=== PATIENT | female | born 1940 | race Caucasian/White ===

== ENCOUNTER 2018-10-24 21:32 | Inpatient (IN) | payer MEDICARE ==
[~2018-10-24] VITALS: Ht 160 cm; Wt 48.5 kg
[2018-10-24] MEDS: BICALUTAMIDE 50 MG TAB PO SCH (21:00)
[2018-10-25 00:15] VITALS: BP 137/63
[2018-10-25 00:57] LABS: HEMATOCRIT 43.3 % (36.0-47.0); HEMOGLOBIN 13.9 g/dl (12.0-15.5); MEAN CORPUSCULAR HEMOGLOBIN 32.9 pg (27.0-33.0); MEAN CORPUSCULAR HGB CONC 32.1 g/dl (32.0-36.5); MEAN CORPUSCULAR VOLUME 102.6 fl (80.0-96.0); PLATELET COUNT, AUTOMATED 278 10^3/uL (150-450); RED BLOOD COUNT 4.22 10^6/uL (4.00-5.40)
[2018-10-25 01:19] LABS: ALBUMIN 2.8 GM/DL (3.2-5.2); ALT/SGPT 27 U/L (12-78); BILIRUBIN,TOTAL 0.8 MG/DL (0.2-1.0); BLOOD UREA NITROGEN 9 MG/DL (7-18); CALCIUM LEVEL 8.1 MG/DL (8.8-10.2); CARBON DIOXIDE LEVEL 17 MEQ/L (21-32); CHLORIDE LEVEL 104 MEQ/L (98-107); GLOMERULAR FILTRATION RATE > 60.0 (>32); GLUCOSE, FASTING 90 MG/DL (70-100); LIPASE 75 U/L (73-393); POTASSIUM SERUM 4.3 MEQ/L (3.5-5.1); SODIUM LEVEL 137 MEQ/L (136-145); TOTAL PROTEIN 6.6 GM/DL (6.4-8.2)
[2018-10-25] MEDS ORDERED: OXYCO5TA PO (01:30)
[2018-10-25] MEDS ORDERED: BICA50TA9 PO (01:30)
[2018-10-25] MEDS ORDERED: METO25TA4 PO (01:30)
[2018-10-25] MEDS ORDERED: TUMS500C PO (01:30)
[2018-10-25] MEDS ORDERED: OMEP-218 PO (01:30)
[2018-10-25] MEDS ORDERED: ELIQ5TAB PO (01:30)
[2018-10-25] MEDS ORDERED: LUPR22.5 IM (01:30)
[2018-10-25] MEDS ORDERED: DENTCRE3 TEETH (01:30)
[2018-10-25] MEDS ORDERED: oxyCODONE 5MG TAB PO PRN (03:15)
[2018-10-25] MEDS ORDERED: MORPHINE 15 MG SA TAB PO SCH (03:15)
[2018-10-25] MEDS ORDERED: CALCIUM CARBONATE 500 MG CHEW U/D PO PRN (03:15)
--- NOTE | 2018-10-25 03:29 | HPEPDOC ---
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 She was deemed untreatable then presented to [facility] where she was initially deemed untreatable following that she was told and a follow-up call to [facility] it could be potentially a rare type of cancer which may respond to leuprolide. As such she was recently initiated on this, she received her second injection of this on Wednesday. Since then however she's had significant pain develop. She is visiting the area on vacation attempting to enjoy the time she has left her lif e. She was in so much pain today that her her son and presented to [facility]. There her abdominal pain was unable to be controlled carotid sure of the etiology she received significant narcotics at the point that she began desaturating and the decision was made to transfer her for higher level of care monitoring and further evaluation. Otherwise patient denies, hair loss, headache, visual changes, cough, worsening arthritis, change in mood PAST MEDICAL HISTORY: 1. Mucoid epidermal cancer. 2. Dyslipidemia. 3. Left breast cancer 4. Atrial fibrillation on chronic anticoagulation 5. Gastroesophageal reflux disease. HOME MEDICATIONS: Please see below. ALLERGIES: Please see below PAST SURGICAL HISTORY: 1. Salivary gland extraction 3 months ago. 2. : Chronic Resection. 3. Left mastectomy. 4. Bilateral oophorectomy 5. Left wrist open reduction internal fixation SOCIAL HISTORY: Lives with: , Employment: Not working, Tobacco use: Former smoker. ETOH: And former drinker, Illicit drug use: Denies, Tattoos done unprofessionally: Denies, CODE STATUS: DNR/DNI during this visit FAMILY HISTORY:Reviewed and noncontributory REVIEW OF SYSTEMS: 10 systems reviewed and negative other than HPI PHYSICAL EXAMINATION: VITAL SIGNS: Temperature 98.1, pulse 113, respiratory rate 20, blood pressure 137/63, pulse oximetry 94 % on 2 L GENERAL: Pleasant frail elderly female sitting up in bed awake alert oriented speaking in complete sentences no acute distress she is accompanied by her son who provides a great deal of the history is well HEENT: Moist mucous membranes no elevation and CVP CARDIOVASCULAR: S1 S2 regular no additional heart sounds appreciated. RESPIRATORY: Clear to auscultation bilaterally. ABDOMINAL: Bowel sounds present abdomen soft and diffusely tender, there is pain around her T9 region as well as her right flank EXTREMITIES: No clubbing cyanosis or edema NEUROLOGICAL: Spontaneously moves all 4 extremities cranial 2 through 12 grossly intact no gross focal deficits appreciated PSYCHOLOGICAL: Appropriate LABORATORY DATA: See below. MICROBIOLOGY: Please see below. IMAGING: CT reports from [facility] reviewed and in the chart ASSESSMENT & PLAN: This is a 78-year-old female with intractable right flank and abdominal pain. PROBLEMS: 1. Right flank and abdominal pain: After reviewing her labs and CT reports. I feel that there is any other etiology for her pain is likely secondary to her metastatic disease involving lytic lesions. I suspect it is bony pain. I will exhibit caution with further narcotics given she is hypoxic which is new for her. We'll provide with MS Contin 50 mg twice a day we'll also Roxicodone 5 and 10 mg every 4 hours when necessary. I will also provided with a Lidoderm patch and initiate gabapentin 200 mg 3 times a day and standing ibuprofen 400 mg every 8 hours. We will see if this helps control her symptoms, I also had a lengthy discussion with the patient and her son bedside she looks to be a DNR/DNI drop questions answered to her satisfaction she is not interested in comfort measures only her hospice care at this time. They are agreeable to receiving palliative care. They ideally would like to have her pain controlled be discharged as soon as possible to return home and pursue palliative care there. In regards her rosio gnancy she's continued on Lupron if she is able to tolerate it when she returns to her oncologist, will continue Casodex 2. Gastroesophageal reflux disease: Continue with Tums and omeprazole 3. Atrial fibrillation: Continue with anticoagulation and metoprolol tartrate she is controlled DVT PROPHYLAXIS: Lovenox DISPOSITION: Prognosis poor Vital Signs Vital Signs Date Time Temp Pulse Resp B/P (MAP) Pulse Ox O2 Delivery O2 Flow Rate FiO2 10/25/18 00:15 98.1 113 20 137/63 (87) 94 2.0 Laboratory Data Labs 24H Laboratory Tests 2 10/25/18 00:47: Nucleated Red Blood Cells % (auto) 0.0, Anion Gap 16, Glomerular Filtration Rate > 60.0, Blood Urea Nitrogen 9, Creatinine 0.50L, Sodium Level 137, Potassium Level 4.3, Chloride Level 104, Carbon Dioxide Level 17L, Calcium Level 8.1L, Aspartate Amino Transf (AST/SGOT) 66H, Alanine Aminotransferase (ALT/SGPT) 27, Alkaline Phosphatase 104, Total Bilirubin 0.8, Total Protein 6.6, Albumin 2.8L, Albumin/Globulin Ratio 0.74L, Lipase 75 CBC/BMP Laboratory Tests 10/25/18 00:47 Red Blood Count 4.22, Mean Corpuscular Volume 102.6 H, Mean Corpuscular Hemoglobin 32.9, Mean Corpuscular Hemoglobin Concent 32.1, Red Cell Distribution Width 12.5, Calcium Level 8.1 L, Aspartate Amino Transf (AST/SGOT) 66 H, Alanine Aminotransferase (ALT/SGPT) 27, Alkaline Phosphatase 104, Total Bilirubin 0.8, Total Protein 6.6, Albumin 2.8 L Home Medications Scheduled Apixaban (Eliquis) 5 Mg Tablet, 5 MG PO BID Bicalutamide (Bicalutamide) 50 Mg Tablet, 50 MG PO QHS Fluoride (Sodium) (Denta 5000 Plus) 51 Gm Cream..g., 1 DOSE TEETH QHS Leuprolide Acetate (Lupron Depot) 22.5 Mg Syringekit, Unknown Dose IM QMONTH Metoprolol Tartrate (Metoprolol Tartrate) 25 Mg Tablet, 25 MG PO BID Omeprazole (Omeprazole) 20 Mg Capsule.dr, 40 MG PO DAILY Scheduled PRN Calcium Carbonate (Tums) 200 Mg Tab.chew, 1,000 MG PO Q4H PRN for HEARTBURN/INDIGESTION Oxycodone HCl (Oxycodone HCl) 5 Mg Tablet, 5 MG PO Q6H PRN for PAIN Allergies Coded Allergies: No Known Allergies (Verified Allergy, Unknown, 10/25/18) A-FIB/CHADSVASC A-FIB History Current/History of A-Fib/PAF?: Yes Current PO Anticoag Therapy: Yes SARAHY GARCIA MD Oct 25, 2018 03:29
[2018-10-25 04:00] VITALS: BP 131/76
[2018-10-25] MEDS: LIDOCAINE 5% (LIDODERM) PATCH TD SCH (04:46)
[2018-10-25] MEDS ORDERED: METOPROLOL TART 25 MG TABLET PO ONE (05:00)
[2018-10-25] MEDS ORDERED: IBUPROFEN 400 MG TAB PO SCH (06:00)
[2018-10-25 08:00] VITALS: BP 134/78
[2018-10-25] MEDS ORDERED: KETOROLAC 30 MG/ML VIAL (J1885) IV SCH (08:15)
[2018-10-25] MEDS: GABAPENTIN 100 MG CAP PO SCH ×3 (08:17→20:59)
[2018-10-25] MEDS: APIXABAN 5 MG TAB (ELIQUIS) PO SCH ×2 (08:18→20:58)
[2018-10-25] MEDS: METOPROLOL TART 25 MG TABLET PO SCH ×2 (08:19→20:59)
[2018-10-25] MEDS: MORPHINE 10MG/0.5ML ORAL CONCENTRATE SOLUTION U/D SL PRN (08:19)
[2018-10-25] MEDS ORDERED: OMEPRAZOLE 20 MG CAP PO SCH (09:00)
--- NOTE | 2018-10-25 09:06 | NUR ---
Recommend mechanical soft solids (NDD) and thin liquids, medications crushed in puree assist, staff assist for upright position during meals, standard oral care, calorie-dense food options & ensure. Dysphagia tx f/u diet tolerance. Addendum: 10/25/18 at 0907 by ROLANDO CARLTON [facility] Amended: Links added.
[2018-10-25] MEDS: KETOROLAC 30 MG/ML VIAL (J1885) IV SCH ×2 (09:20→18:09)
[2018-10-25 12:00] VITALS: BP 100/63
--- NOTE | 2018-10-25 13:36 | CR ---
DATE OF CONSULTATION: 10/25/2018 REASON FOR CONSULTATION: Dr. Todd asked pain management to consult regarding this patient. 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 She has been on oxycodone 5 mg four times a day with little to no relief. She admits to trying morphine in the past with little to no relief. She does endorse good pain management with Toradol. PAST MEDICAL HISTORY: Significant for mucoid epidermal cancer, parotid primary, dyslipidemia, left breast CA, atrial fibrillation, and gastroesophageal reflux disease (GERD). SURGICAL HISTORY: Significant for salivary gland extraction three months ago, chronic resection, left mastectomy, bilateral oophorectomy, left wrist open reduction internal fixation. ALLERGIES: No known drug allergies. REVIEW OF SYSTEMS: Generalized pain that is worse in the right upper quadrant and right flank area. PHYSICAL EXAMINATION: This is an alert and oriented 78-year-old female with a pleasant affect. Lung sounds are clear. Heart rate is regular. No erythema, ecchymosis, increased warmth or skin eruptions noted along the back or flank areas. PLAN: After consulting with Dr. Cornelius and Dr. Todd regarding this patient, given presenting symptoms and results of physical examination, recommended Vicoprofen 7.5 mg four times a day for pain. The patient's oncologist will be made aware of the addition of this medication. Thank you for allowing us to participate in the care of your patient. Should you have any questions or concerns, please feel free to call us at the pain center.
[2018-10-25 16:00] VITALS: BP 132/67
--- NOTE | 2018-10-25 17:01 | IPNPDOC ---
Subjective Date Seen The patient was seen on 10/25/18. Subjective Chief Complaint/HPI 78f with hx of afib on eliquis, colon resection, breast ca, and newly diagnosed metastatic parotid cancer started on lupron for "palliation", transferred from [facility] after presenting with severe pain. Pt reports the pain is in the same places it has been for the past 6-8 weeks, ribs, epigastrum, back, but past two days has been much more severe than in the past. She was given fentanyl and dilaudid at the outside hospital with no pain relief and also desatted to 80s. during our first conversation she is tachycardic, writhing in pain. She was given iv toradol with marked improvement. a full 10pt ROS was performed and negative with the exception of what is documented above. Objective Physical Examination General Exam: Positive: Alert, Moderate Distress Eye Exam: Positive: PERRLA, Conjunctiva & lids normal, EOMI; Negative: Sclera icteric ENT Exam: Positive: Atraumatic, Mucous membr. moist/pink, Pharynx Normal Neck Exam: Positive: Supple; Negative: JVD, thyromegaly Chest Exam: Positive: Clear to auscultation, Normal air movement Heart Exam: Positive: Tachycardic, Regular Rhythm, Normal S1, Normal S2; Negative: Murmurs, Rubs Abdomen Exam: Positive: Normal bowel sounds, Soft, Tenderness; Negative: Hepatospenomegaly Extremity Exam: Positive: Normal pulses; Negative: Clubbing, Cyanosis, Edema Skin Exam: Positive: Nl turgor and temperature; Negative: Rash, Breakdown Neuro Exam: Positive: Normal Gait, Normal Speech, Cranial Nerves 3-12 NL, Reflexes 2+ Psych Exam: Positive: Mental status NL, Mood NL, Oriented x 3 Assessment /Plan Assessment 78f with end stage parotid cancer p/w intractable pain pain is well controlled with nsaids however pt is on eliquis for afib discussed risk with pt and family offered options of using both agents together with the increased risk of bleeding, stopping eliquis with the increased chance of stroke, or not using nsaids (which have provided her the most relief) pain management was consulted suggesting vicoprofen we do not have that here so would have to be started on dc Plan/VTE VTE Prophylaxis Ordered?: Yes VS, I&O, 24H, Fishbone Vital Signs/I&O Vital Signs Date Time Temp Pulse Resp B/P (MAP) Pulse Ox O2 Delivery O2 Flow Rate FiO2 10/25/18 12:00 98.1 92 19 100/63 (75) 94 2.0 I&O- Last 24 Hours up to 6 AM 10/25/18 06:00 Intake Total 0 ml Output Total 0 ml Balance 0 ml Laboratory Data 24H LABS Laboratory Tests 2 10/25/18 00:47: Nucleated Red Blood Cells % (auto) 0.0, Anion Gap 16, Glomerular Filtration Rate > 60.0, Blood Urea Nitrogen 9, Creatinine 0.50L, Sodium Level 137, Potassium Level 4.3, Chloride Level 104, Carbon Dioxide Level 17L, Calcium Level 8.1L, Aspartate Amino Transf (AST/SGOT) 66H, Alanine Aminotransferase (ALT/SGPT) 27, Alkaline Phosphatase 104, Total Bilirubin 0.8, Total Protein 6.6, Albumin 2.8L, Albumin/Globulin Ratio 0.74L, Lipase 75 CBC/BMP Laboratory Tests 10/25/18 00:47 Red Blood Count 4.22, Mean Corpuscular Volume 102.6 H, Mean Corpuscular Hemoglobin 32.9, Mean Corpuscular Hemoglobin Concent 32.1, Red Cell Distribution Width 12.5, Calcium Level 8.1 L, Aspartate Amino Transf (AST/SGOT) 66 H, Alanine Aminotransferase (ALT/SGPT) 27, Alkaline Phosphatase 104, Total Bilirubin 0.8, Total Protein 6.6, Albumin 2.8 L JULI ADAMSON MD Oct 25, 2018 17:01
[2018-10-25 20:00] VITALS: BP 141/80
[2018-10-25] MEDS: **NOTE PATIENT COMMENT** MISC XX SCH (21:00)
[2018-10-25] MEDS: BICALUTAMIDE 50 MG TAB PO SCH (23:12)
[2018-10-26] VITALS (7 sets, daily range): BP systolic 101–144; BP diastolic 59–84
[2018-10-26] MEDS: KETOROLAC 30 MG/ML VIAL (J1885) IV SCH ×3 (00:38→17:00)
[2018-10-26] MEDS: MORPHINE 10MG/0.5ML ORAL CONCENTRATE SOLUTION U/D SL PRN (04:12)
[2018-10-26] MEDS: oxyCODONE 5MG TAB PO PRN ×2 (04:48→14:33)
[2018-10-26] MEDS: GABAPENTIN 100 MG CAP PO SCH ×3 (04:49→20:51)
[2018-10-26] MEDS ORDERED: HYDROmorphone 2 MG TAB PO ONE (08:15)
[2018-10-26] MEDS: PANTOPRAZOLE 40MG INJ (PROTONIX) (C9113) IV SCH (09:18)
[2018-10-26] MEDS: METOPROLOL TART 25 MG TABLET PO SCH ×2 (09:21→20:50)
[2018-10-26] MEDS: LIDOCAINE 5% (LIDODERM) PATCH TD SCH (09:22)
[2018-10-26] MEDS: APIXABAN 5 MG TAB (ELIQUIS) PO SCH ×2 (09:22→20:49)
[2018-10-26] MEDS: DOCUSATE SOD LIQ 100MG/10ML UDC PO SCH ×2 (14:30→20:51)
[2018-10-26] MEDS: SENNA 8.6 MG TAB (SENOKOT) PO SCH ×2 (14:31→20:51)
[2018-10-26] MEDS: HYDROmorphone 2 MG TAB PO PRN (20:50)
[2018-10-26] MEDS: BICALUTAMIDE 50 MG TAB PO SCH (20:51)
[2018-10-26] MEDS: **NOTE PATIENT COMMENT** MISC XX SCH (21:00)
[2018-10-27] VITALS (7 sets, daily range): BP systolic 115–159; BP diastolic 66–83
[2018-10-27] MEDS: KETOROLAC 30 MG/ML VIAL (J1885) IV SCH ×2 (00:13→09:25)
--- NOTE | 2018-10-27 05:19 | IPNPDOC ---
Text Note Date of Service The patient was seen on 10/26/18. NOTE Pt was seen and examined at bedside. Complains of lower abdomen and bone pain. No dyspnea or tachypnea. No N/V. Pt was given one dose of dilaudid to assess response. PHE: General: AAOx3 moderate distress due to pain HEENT: AMY EOMI no icterus no JVD CVS: S1 S2 no murmur no gallop Lungs: no wheeze no rales Abdomen: soft NT ND Ext: no cyanosis no tenderness no edema Neuro: motor sensory grossly intact Vital Signs Date Time Temp Pulse Resp B/P (MAP) Pulse Ox O2 Delivery O2 Flow Rate FiO2 10/26/18 16:00 97.0 111 18 101/65 (77) 92 10/26/18 14:33 20 94 10/26/18 12:27 97.9 81 20 111/59 94 2.0 10/26/18 12:00 97.9 81 18 111/59 (76) 92 10/26/18 11:57 20 90 10/26/18 09:21 114 144/84 10/26/18 08:00 97.7 114 20 144/84 (104) 90 10/26/18 05:18 14 10/26/18 04:49 20 10/26/18 04:48 20 10/26/18 04:12 16 10/26/18 04:00 97.6 105 18 131/74 (93) 90 10/26/18 00:00 98.9 88 16 129/77 (94) 92 10/25/18 20:59 124 141/80 10/25/18 20:00 97.1 77 18 141/80 (100) 90 10/25/18 18:15 95 Intake & Output 10/26/18 05:59 Intake Total 473 ml Output Total 450 ml Balance 23 ml Current Medications Medications (Trade) Dose Ordered Sig/Henna Route PRN Reason Start Time Stop Time Status Last Admin Dose Admin Apixaban (Eliquis) 5 mg BID PO 10/25/18 09:00 10/26/18 09:22 5 MG Bicalutamide (Casodex) 50 mg QHS PO 10/24/18 21:00 10/25/18 23:12 50 MG Docusate Sodium (Colace Liquid) 100 mg BID PO 10/26/18 09:00 10/26/18 14:30 100 MG Gabapentin (Neurontin) 200 mg Q8H PO 10/25/18 06:00 10/26/18 14:30 200 MG Ketorolac Tromethamine (ToRADol) 15 mg Q8H IV 10/25/18 09:00 10/30/18 08:59 10/26/18 09:21 15 MG Lidocaine (Lidoderm Patch) 1 patch DAILY TD 10/25/18 03:15 10/26/18 09:22 1 PATCH Metoprolol Tartrate (Lopressor) 25 mg BID PO 10/25/18 09:00 10/26/18 09:21 25 MG Morphine Sulfate (Roxanol) 5 mg Q2HP PRN SL PAIN 10/25/18 05:45 10/26/18 04:12 5 MG Non-Formulary Medication ( See Comment Field Below ) REMOVE LIDODERM PATCH DAILY@21 XX 10/25/18 21:00 10/25/18 21:00 1 Oxycodone HCl (Roxicodone, Oxyir) 5 mg Q4HP PRN PO PAIN 10/25/18 03:15 10/26/18 14:33 5 MG Pantoprazole Sodium (Protonix) 40 mg DAILY IV 10/26/18 09:00 10/26/18 09:18 40 MG Senna (Senokot) 2 tab BID PO 10/26/18 09:00 10/26/18 14:31 2 TAB A/P 1-Stage IV cancer with intractable musculoskeletal pain Dilaudid was started with improvement in pain Oxycodone prn Toradol prn Cont home meds 2-Constipation Senna/Docusate sec to opioid dose DVT prophylaxis on eliquis DC home on Vycoprofen, outpt pain specialist upon discharge. VS,Fishbone, I+O VS, Fishbone, I+O Vital Signs Date Time Temp Pulse Resp B/P (MAP) Pulse Ox O2 Delivery O2 Flow Rate FiO2 10/26/18 16:00 97.0 111 18 101/65 (77) 92 10/26/18 12:27 2.0 I&O- Last 24 Hours up to 6 AM 10/26/18 05:59 Intake Total 473 ml Output Total 450 ml Balance 23 ml KEILY SETH MD Oct 26, 2018 17:08
[2018-10-27] MEDS: GABAPENTIN 100 MG CAP PO SCH ×3 (05:23→21:02)
[2018-10-27] MEDS: HYDROmorphone 2 MG TAB PO PRN ×3 (05:24→19:42)
[2018-10-27] MEDS: METOPROLOL TART 25 MG TABLET PO SCH ×2 (07:56→21:02)
[2018-10-27] MEDS: SENNA 8.6 MG TAB (SENOKOT) PO SCH ×2 (09:00→21:00)
[2018-10-27] MEDS: DOCUSATE SOD LIQ 100MG/10ML UDC PO SCH ×2 (09:00→21:00)
[2018-10-27] MEDS: PANTOPRAZOLE 40MG INJ (PROTONIX) (C9113) IV SCH (09:25)
[2018-10-27] MEDS: LIDOCAINE 5% (LIDODERM) PATCH TD SCH (09:26)
[2018-10-27] MEDS: APIXABAN 5 MG TAB (ELIQUIS) PO SCH ×2 (09:27→21:02)
[2018-10-27] MEDS: oxyCODONE 5MG TAB PO PRN (10:45)
--- NOTE | 2018-10-27 18:58 | IPNPDOC ---
Text Note Date of Service The patient was seen on 10/27/18. NOTE Pt was seen and examined at bedside. Complains of lower abdomen and bone pain. No dyspnea or tachypnea. No N/V. Pt had delusions overnight. Tolerating dilaudid well now. PHE: General: AAOx3 moderate distress due to pain HEENT: AMY EOMI no icterus no JVD CVS: S1 S2 no murmur no gallop Lungs: no wheeze no rales Abdomen: soft NT ND Ext: no cyanosis no tenderness no edema Neuro: motor sensory grossly intact Vital Signs Date Time Temp Pulse Resp B/P (MAP) Pulse Ox O2 Delivery O2 Flow Rate FiO2 10/27/18 16:00 98.8 97 18 131/70 (90) 90 10/27/18 15:55 20 90 10/27/18 15:25 102 20 91 10/27/18 12:00 99.1 115 18 115/74 (88) 92 10/27/18 10:45 95 20 92 10/27/18 08:00 99.3 133 19 145/83 (103) 91 10/27/18 07:56 130 145/83 10/27/18 06:15 159/80 (106) 10/27/18 05:24 18 10/27/18 04:00 97.8 130 18 154/80 (104) 90 10/26/18 23:59 97.6 109 18 119/72 (88) 91 10/26/18 20:50 14 10/26/18 20:50 106 116/72 10/26/18 20:00 97.8 106 18 116/72 (87) 90 Intake & Output 10/27/18 06:00 Intake Total 600 ml Output Total 500 ml Balance 100 ml Current Medications Medications (Trade) Dose Ordered Sig/Henna Route PRN Reason Start Time Stop Time Status Last Admin Dose Admin Apixaban (Eliquis) 5 mg BID PO 10/25/18 09:00 10/27/18 09:27 5 MG Bicalutamide (Casodex) 50 mg QHS PO 10/24/18 21:00 10/26/18 20:51 50 MG Docusate Sodium (Colace Liquid) 100 mg BID PO 10/26/18 09:00 10/26/18 20:51 100 MG Gabapentin (Neurontin) 200 mg Q8H PO 10/25/18 06:00 10/27/18 15:25 200 MG Hydromorphone HCl (Dilaudid) 1 mg Q4HP PRN PO MODERATE/SEVERE PAIN (PS 5-10) 10/26/18 12:30 10/27/18 15:25 1 MG Lidocaine (Lidoderm Patch) 1 patch DAILY TD 10/25/18 03:15 10/27/18 09:26 1 PATCH Metoprolol Tartrate (Lopressor) 25 mg BID PO 10/25/18 09:00 10/27/18 07:56 25 MG Morphine Sulfate (Roxanol) 5 mg Q2HP PRN SL PAIN 10/25/18 05:45 10/26/18 04:12 5 MG Non-Formulary Medication ( See Comment Field Below ) REMOVE LIDODERM PATCH DAILY@21 XX 10/25/18 21:00 10/26/18 21:00 1 Pantoprazole Sodium (Protonix) 40 mg DAILY IV 10/26/18 09:00 10/27/18 09:25 40 MG Senna (Senokot) 2 tab BID PO 10/26/18 09:00 10/26/18 20:51 2 TAB 1-Stage IV cancer with intractable musculoskeletal pain Dilaudid was started with improvement in pain Will cont with dilaudid and monitor 2-Constipation Senna/Docusate sec to opioid dose DVT prophylaxis on eliquis DC home on Vycoprofen, outpt pain specialist upon discharge. VS,Fishbone, I+O VS, Fishbone, I+O Vital Signs Date Time Temp Pulse Resp B/P (MAP) Pulse Ox O2 Delivery O2 Flow Rate FiO2 10/27/18 16:00 98.8 97 18 131/70 (90) 90 10/26/18 15:03 2.0 I&O- Last 24 Hours up to 6 AM 10/27/18 06:00 Intake Total 600 ml Output Total 500 ml Balance 100 ml KEILY SETH MD Oct 27, 2018 18:58
[2018-10-27] MEDS: BICALUTAMIDE 50 MG TAB PO SCH (21:01)
[2018-10-27] MEDS: **NOTE PATIENT COMMENT** MISC XX SCH (21:19)
[2018-10-28] MEDS: HYDROmorphone 2 MG TAB PO PRN ×5 (03:59→21:54)
[2018-10-28 04:00] VITALS: BP 140/72
[2018-10-28] MEDS: GABAPENTIN 100 MG CAP PO SCH ×3 (05:50→21:08)
[2018-10-28 08:00] VITALS: BP 130/96
[2018-10-28] MEDS ORDERED: fentaNYL 25 MCG/HR PATCH TOP ONE (09:45)
[2018-10-28] MEDS: PANTOPRAZOLE 40MG INJ (PROTONIX) (C9113) IV SCH (09:53)
[2018-10-28] MEDS: DOCUSATE SOD LIQ 100MG/10ML UDC PO SCH ×2 (09:53→21:06)
[2018-10-28] MEDS: APIXABAN 5 MG TAB (ELIQUIS) PO SCH ×2 (09:54→21:08)
[2018-10-28] MEDS: SENNA 8.6 MG TAB (SENOKOT) PO SCH ×2 (09:54→21:00)
[2018-10-28] MEDS: METOPROLOL TART 25 MG TABLET PO SCH ×2 (09:54→21:09)
[2018-10-28] MEDS: LIDOCAINE 5% (LIDODERM) PATCH TD SCH (09:55)
[2018-10-28 12:00] VITALS: BP 124/72
[2018-10-28 16:00] VITALS: BP 129/89
[2018-10-28 19:23] VITALS: BP 136/86
[2018-10-28] MEDS: BICALUTAMIDE 50 MG TAB PO SCH (21:09)
[2018-10-28] MEDS: **NOTE PATIENT COMMENT** MISC XX SCH (21:53)
[2018-10-29] VITALS: BP 132/84
[2018-10-29] MEDS: HYDROmorphone 2 MG TAB PO PRN ×3 (00:50→11:45)
[2018-10-29 04:00] VITALS: BP 140/91
[2018-10-29] MEDS: GABAPENTIN 100 MG CAP PO SCH ×2 (05:19→14:46)
--- NOTE | 2018-10-29 06:19 | IPNPDOC ---
Text Note Date of Service The patient was seen on 10/28/18. NOTE Pt was seen and examined at bedside. Pt complains of abdominal and bone pain. Stage IV cancer with advanced mets. Plan to achieve best pain control regimen to minimize pt discomfort. PHE: General: AAOx3 moderate distress due to pain HEENT: AMY EOMI no icterus no JVD CVS: S1 S2 no murmur no gallop Lungs: no wheeze no rales Abdomen: soft NT ND Ext: no cyanosis no tenderness no edema Neuro: motor sensory grossly intact Vital Signs Date Time Temp Pulse Resp B/P (MAP) Pulse Ox O2 Delivery O2 Flow Rate FiO2 10/29/18 05:50 18 10/29/18 05:20 20 10/29/18 04:00 98.0 102 16 140/91 (107) 91 10/29/18 00:50 16 10/29/18 00:00 97.0 107 18 132/84 (100) 88 10/28/18 21:09 117 10/28/18 21:08 20 93 10/28/18 19:23 98.7 132 22 136/86 (103) 90 10/28/18 16:51 18 10/28/18 16:00 97.4 105 20 129/89 (102) 95 10/28/18 12:23 22 10/28/18 12:00 97.0 110 20 124/72 (89) 92 10/28/18 10:28 22 10/28/18 09:58 18 10/28/18 09:54 124 130/96 10/28/18 08:00 97.7 124 20 130/96 (107) 93 Intake & Output 10/29/18 06:00 Intake Total 530 ml Balance 530 ml Current Medications Medications (Trade) Dose Ordered Sig/Henna Route PRN Reason Start Time Stop Time Status Last Admin Dose Admin Apixaban (Eliquis) 5 mg BID PO 10/25/18 09:00 10/28/18 21:08 5 MG Bicalutamide (Casodex) 50 mg QHS PO 10/24/18 21:00 10/28/18 21:09 50 MG Docusate Sodium (Colace Liquid) 100 mg BID PO 10/26/18 09:00 10/28/18 21:06 100 MG Gabapentin (Neurontin) 200 mg Q8H PO 10/25/18 06:00 10/29/18 05:19 200 MG Hydromorphone HCl (Dilaudid) 2 mg Q4HP PRN PO MODERATE/SEVERE PAIN (PS 5-10) 10/28/18 09:15 10/29/18 05:20 2 MG Lidocaine (Lidoderm Patch) 1 patch DAILY TD 10/25/18 03:15 10/28/18 09:55 1 PATCH Metoprolol Tartrate (Lopressor) 25 mg BID PO 10/25/18 09:00 10/28/18 21:09 25 MG Non-Formulary Medication ( See Comment Field Below ) REMOVE LIDODERM PATCH DAILY@21 XX 10/25/18 21:00 10/28/18 21:53 1 Pantoprazole Sodium (Protonix) 40 mg DAILY IV 10/26/18 09:00 10/28/18 09:53 40 MG Senna (Senokot) 2 tab BID PO 10/26/18 09:00 10/28/18 09:54 2 TAB 1-Stage IV cancer with intractable musculoskeletal pain Pt was admitted due to intractable pain family visiting this area for vacation pt with agitation and delirium overnight currently on long acting and short acting opioids, will monitor response 2-Constipation Senna/Docusate sec to opioid DVT prophylaxis on eliquis DC home on Vycoprofen, outpt pain specialist upon discharge. VS,Fishbone, I+O VS, Fishbone, I+O Vital Signs Date Time Temp Pulse Resp B/P (MAP) Pulse Ox O2 Delivery O2 Flow Rate FiO2 10/29/18 05:50 18 10/29/18 04:00 98.0 102 140/91 (107) 91 10/26/18 15:03 2.0 I&O- Last 24 Hours up to 6 AM 10/29/18 06:00 Intake Total 530 ml Balance 530 ml KEILY SETH MD Oct 29, 2018 06:19
[2018-10-29 08:00] VITALS: BP 135/89
[2018-10-29 09:13] VITALS: BP 135/89
[2018-10-29] MEDS: METOPROLOL TART 25 MG TABLET PO SCH (09:13)
[2018-10-29] MEDS: DOCUSATE SOD LIQ 100MG/10ML UDC PO SCH (09:13)
[2018-10-29] MEDS: APIXABAN 5 MG TAB (ELIQUIS) PO SCH (09:14)
[2018-10-29] MEDS: SENNA 8.6 MG TAB (SENOKOT) PO SCH (09:17)
[2018-10-29] MEDS: PANTOPRAZOLE 40MG INJ (PROTONIX) (C9113) IV SCH (09:17)
[2018-10-29] MEDS: LIDOCAINE 5% (LIDODERM) PATCH TD SCH (09:17)
[2018-10-29] MEDS ORDERED: SLF 3 ML SYR IV PRN (09:45)
[2018-10-29 12:00] VITALS: BP 120/74
[2018-10-29] MEDS ORDERED: SENN1TAB36 PO (13:54)
[2018-10-29] MEDS ORDERED: DILA1LIQ2 PO (13:59)
[2018-10-29] MEDS ORDERED: SLF 3 ML SYR IV SCH (14:00)
[2018-10-29] MEDS ORDERED: FENT1DIS14 TOP (14:03)
[2018-10-29] MEDS ORDERED: DILA2TAB6 PO (14:13)
--- NOTE | 2018-10-30 02:29 | DS.PDOC ---
Discharge Summary General Date of Admission Oct 25, 2018 at 00:16 Discharge Summary PROCEDURES PERFORMED DURING STAY: [None]. ADMITTING DIAGNOSES: 1. . DISCHARGE DIAGNOSES: 1. . COMPLICATIONS/CHIEF COMPLAINT: Abd Pain. HISTORY OF PRESENT ILLNESS: . HOSPITAL COURSE: . DISCHARGE MEDICATIONS: Please see below. ALLERGIES: Please see below. PHYSICAL EXAMINATION ON DISCHARGE: VITAL SIGNS: Please see below. GENERAL: HEENT: NECK: CARDIOVASCULAR EXAMINATION: RESPIRATORY EXAMINATION: ABDOMINAL EXAMINATION: EXTREMITIES: SKIN: NEUROLOGICAL EXAMINATION: PSYCHIATRIC EXAMINATION: LABORATORY DATA: Please see below. IMAGING: PROGNOSIS: ACTIVITY: [As tolerated]. DIET: DISCHARGE PLAN: DISPOSITION: Home, Self-Care. DISCHARGE INSTRUCTIONS: 1. . ITEMS TO FOLLOWUP ON ON OUTPATIENT: 1. . DISCHARGE CONDITION: [Stable]. TIME SPENT ON DISCHARGE: Greater than minutes. Vital Signs/I&Os Vital Signs Date Time Temp Pulse Resp B/P (MAP) Pulse Ox O2 Delivery O2 Flow Rate FiO2 10/29/18 12:15 19 95 10/29/18 12:00 98.5 97 120/74 (89) 10/29/18 11:45 1.0 I&O- Last 24 Hours up to 6 AM 10/30/18 06:00 Intake Total 0 ml Balance 0 ml Discharge Medications Scheduled Apixaban (Eliquis) 5 Mg Tablet, 5 MG PO BID, (Reported) Bicalutamide (Bicalutamide) 50 Mg Tablet, 50 MG PO QHS, (Reported) Fentanyl (Fentanyl) 25 Mcg Patch.td72, 1 PATCH TOP Q3D for pain Fluoride (Sodium) (Denta 5000 Plus) 51 Gm Cream..g., 1 DOSE TEETH QHS, (Reported) Leuprolide Acetate (Lupron Depot) 22.5 Mg Syringekit, Unknown Dose IM QMONTH, (Reported) Metoprolol Tartrate (Metoprolol Tartrate) 25 Mg Tablet, 25 MG PO BID, (Reported) Omeprazole (Omeprazole) 20 Mg Capsule.dr, 40 MG PO DAILY, (Reported) Sennosides/Docusate Sodium (Docusate Sodium-Senna Tablet) 1 Each Tablet, 2 TAB PO BID Scheduled PRN Calcium Carbonate (Tums) 200 Mg Tab.chew, 1,000 MG PO Q4H PRN for HEARTBURN/INDIGESTION, (Reported) Hydromorphone HCl (Dilaudid) 1 Mg/1 Ml Liquid, 1 MG PO Q4H PRN for PAIN OR DYSPNEA Hydromorphone HCl (Dilaudid) 2 Mg Tablet, 2 MG PO Q4H PRN for pain Oxycodone HCl (Oxycodone HCl) 5 Mg Tablet, 5 MG PO Q6H PRN for PAIN, (Reported) Allergies Coded Allergies: No Known Allergies (Verified Allergy, Unknown, 10/25/18) KEILY SETH MD Oct 30, 2018 01:32
[2018-10-31] MEDS ORDERED: FENTANYL REMOVAL DOCUMENTATION MISC XX SCH (09:00)
[2018-10-31] MEDS ORDERED: fentaNYL 25 MCG/HR PATCH TOP SCH (09:00)
[2018-10-31] MEDS ORDERED: FENTANYL REMOVAL DOCUMENTATION MISC XX ONE (09:45)
== END 2018-10-29 15:37 | disposition home or self-care (01) | DRG 948 ==
LOC: M PCU 10-25 00:16
PROVIDERS: ADMIT Internal Medicine; ATTEND Hospitalist
DX: G89.3 Neoplasm related pain (acute) (chronic) (principal); C79.51 Secondary malignant neoplasm of bone; C78.01 Secondary malignant neoplasm of right lung; C78.02 Secondary malignant neoplasm of left lung; K21.9 Gastro-esophageal reflux disease without esophagitis; I48.91 Unspecified atrial fibrillation; C07 Malignant neoplasm of parotid gland; E78.5 Hyperlipidemia, unspecified; Z79.01 Long term (current) use of anticoagulants; Z66 Do not resuscitate; K59.00 Constipation, unspecified; Z90.12 Acquired absence of left breast and nipple; Z90.722 Acquired absence of ovaries, bilateral; Z87.891 Personal history of nicotine dependence; Z79.899 Other long term (current) drug therapy; Z90.49 Acquired absence of other specified parts of digestive tract